=== PATIENT | female | born 1950 | race Hispanic/Latino ===

== ENCOUNTER → 2018-07-09 | Outpatient (CLI) | payer MEDICARE ==
--- NOTE | 2018-07-18 08:47 | Diagnostic Imaging Report ---
#[id number] - MGSCRBIL #BILATERAL DIGITAL SCREENING MAMMOGRAM WITH CAD: 07/09/2018 CLINICAL: Routine screening. Comparison is made to exams dated: 02/23/2017 mammogram, 09/09/2015 mammogram and 01/15/2015 mammogram - [facility]. Current study contains 4 films. The tissue of both breasts is heterogeneously dense. This may lower the sensitivity of mammography. Current study was also evaluated with a Computer Aided Detection (CAD) system. There are benign calcifications in both breasts. There also is a benign mass in the left breast stable back to 2014. There is vascular calcification in the left breast. No significant masses, calcifications, or other findings are seen in either breast. There has been no significant interval change. IMPRESSION: BENIGN There is no mammographic evidence of malignancy. A 1 year screening mammogram is recommended. The patient will be notified by letter of the results. Faisal Mcgovern Jr., D.O. cw/:07/17/2018 07:47:02 Manager Of Drilling: Doris RICO)(M), [facility] letter sent: Compared to Prior B9 Mammogram BI-RADS: 2 Benign
== END ==
LOC: MAMMO 11:23
PROVIDERS: ATTEND Obstetrics & Gynecology Obstetrics
DX: Z12.31 Encounter for screening mammogram for malignant neoplasm of breast (principal)
CPT/HCPCS: 77067

== ENCOUNTER → 2018-11-16 | Outpatient (CLI) | payer MEDICARE ==
--- NOTE | 2018-11-16 15:00 | Diagnostic Imaging Report ---
Exam: Bone mineral density study. History: Osteopenia. Comparison: None Discussion: Evaluation of the left hip, and lumbar spine was performed utilizing DEXA Hologic bone densitometer. The study is technically adequate. Left hip total bone mineral density: 0.983gm/cm2, T-score is 0.2, Z-score is 1.6. Left hip femoral neck bone mineral density: 0.880gm/cm2, T-score is 0.1, Z-score is 1.8. Lumbar spine total bone mineral density:0.923gm/cm2, T-score is-1.1, Z-score is 1.0. Impression: 1. Normal bone mineral density of the left hip, fracture risk is not increased. 2. Osteopenia of the lumbar spine, fracture risk is increased Least significant change (LSC) for bone mineral density as provided by machining associate is 0.023 g/cm2 for lumbar spine and 0.027 g/cm2 for total hip. 10 -year fracture risk per WHO Fracture Risk Assessment Tool (FRAX) for: Major osteoporotic fracture is 3.7% Hip fracture is 0.2% The above fracture probability is calculated for an untreated patient. Fracture probably may be lower if the patient has received treatment. All treatment decisions require clinical judgment and consideration of individual patient factors, including patient preferences, comorbidities, previous drug use and risk factors not captured in the FRAX model (e.g. frailty, falls, vitamin D deficiency, increased bone turnover, interval significant decline in BMD). The patient's fracture risk is compared to an age-matched control. Medical evaluation for secondary causes of low bone bone mineral density may be appropriate. Correlate clinically for the necessity and timing of the next bone mineral density study Signed by: Dr. Jeffrey Hall M.D. on 11/16/2018 2:56 PM
== END ==
LOC: DX 14:15
PROVIDERS: ATTEND Internal Medicine
DX: Z13.820 Encounter for screening for osteoporosis (principal)
CPT/HCPCS: 77080

== ENCOUNTER 2018-11-19 15:41 | Emergency (ER) | payer SELFPAY ==
[~2018-11-19] VITALS: Ht 162.6 cm; Wt 76.7 kg
--- OUTSIDE RECORDS SUMMARY | 2018-11-19 15:44 | XMS REPORT | Summary of Care ---
Author Author [facility] [place] Organization [facility] [place] Address Unknown Phone Unavailable Encounter HQ Encntr_alias(FIN) [id number] Date(s): 09/09/15 - 09/09/15 [facility] [place] [address] [place] [address] [phone] Discharge Disposition: Home Attending Physician: Medardo Delarosa MD Vital Signs No data available for this section Problem List No data available for this section Allergies, Adverse Reactions, Alerts No data available for this section Medications No data available for this section Results No data available for this section Immunizations No data available for this section Procedures No data available for this section Social History No data available for this section Assessment and Plan No data available for this section
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
--- OUTSIDE RECORDS SUMMARY | 2018-11-19 15:44 | XMS REPORT | Summary of Care ---
Author Organization Unknown Address Unknown Phone Unavailable Encounter HQ Encntr_alias([facility]) [id number] Date(s): 07/18/14 - 07/18/14 [facility] Outpatient Imaging - [address] [address] [place] Discharge Disposition: Home Physician Attending: Medardo Delarosa MD Reason for Visit V76.12 - SCREEN MAMMOGRA Problem List No data available for this section Allergies, Adverse Reactions, Alerts No data available for this section Medications No data available for this section Medications Administered During Your Visit No data available for this section Immunizations No data available for this section
--- OUTSIDE RECORDS SUMMARY | 2018-11-19 15:44 | XMS REPORT | Continuity of Care Document ---
Author Author [facility] Interface Address Unknown Phone Unavailable Problems Problem Status Onset Date Classification Date Reported Comments Source R92.8 - OTH ABN AND INCONCLUSIVE FINDI Active 01/24/2017 [facility] R92.2 - INCONCLUSIVE MAMMOGRAM Active 09/02/2015 [facility] 793.80 - ABL MAMMOGRAM N Active 12/30/2014 [facility] [place] Medications Medication Details Route Status Patient Instructions Ordering Provider Order Date Source Allergies, Adverse Reactions, Alerts Substance Category Reaction Severity Reaction type Status Date Reported Comments Source Immunizations Immunization Date Given Site Status Last Updated Comments Source Results Order Name Results Value Reference Range Date Interpretation Comments Source Breast Mammo Diag DEE incl CAD MA Breast Mammo Diag DEE incl CAD MA - BREAST MAMMO DIAG DEE INCL CAD MA BILATERAL DIGITAL DIAGNOSTIC MAMMOGRAM WITH CAD: 02/23/2017 CLINICAL: Other Abnormal And Inconclusive Findings On Diagnostic Imaging Of Breast/R92.8. Current study was evaluated with a Computer Aided Detection (CAD) system. Comparison is made to exams dated: 09/09/2015 mammogram, 01/15/2015 mammogram, 08/20/2014 mammogram and 07/18/2014 mammogram - [facility]. The tissue of both breasts is heterogeneously dense, which could obscure detection of small masses. The area of prior concern in the left breast is stable since 2013. There are benign calcifications in both breasts. No significant masses, calcifications, or other findings are seen in either breast. There has been no significant interval change. IMPRESSION: BENIGN There is no mammographic evidence of malignancy. A 1 year screening mammogram is recommended. Professional services are provided by the [facility]. Danny Lopez M.D., cm/lara:02/23/2017 11:41:46 Signals Collector/Analyst: Nicole DUMONT(Heidi)([place]), [facility] This exam was dictated and interpreted by [id number] for Clifford. letter sent: Normal [place] Mammogram BI-RADS: 2 Benign 02/23/2017 - - Read by: Devendra Sorensen MD Dictated Date/time: 02/23/17 11:41 Electronically Signed by: Devendra Sorensen MD 02/23/17 11:41 FINAL REPORT SHANNON Horton Digital Mammo DX Dee MA Digital Mammo DX Dee MA - DIGITAL MAMMO DX DEE MA BILATERAL DIGITAL DIAGNOSTIC MAMMOGRAM WITH CAD: 09/09/2015 CLINICAL: N63 Unspecified Lump In Breast. Current study was evaluated with a Computer Aided Detection (CAD) system. Comparison is made to exams dated: 01/15/2015 mammogram, 08/20/2014 mammogram and 07/18/2014 mammogram - [facility]. The tissue of both breasts is heterogeneously dense, which could obscure detection of small masses. There is a stable focal asymmetry in the left breast central to the nipple posterior depth. Scattered benign calcifications bilaterally without suspicious masses, calcifications, or other findings are seen in either breast. IMPRESSION: PROBABLY BENIGN The stable focal asymmetry in the left breast most likely is fibroglandular tissue and is probably benign. A follow-up mammogram in 12 months is recommended. Danny Lopez M.D. cm/:09/09/2015 11:00:18 Signals Collector/Analyst: Salina Pinto, [facility] This exam was dictated and interpreted by [id number] for SHANNON Horton. letter sent: Followup Mammogram BI-RADS: 3 Probably benign 09/09/2015 - - Read by: Devendra Sorensen MD Dictated Date/time: 09/09/15 11:00 Electronically Signed by: Devendra Sorensen MD 09/09/15 11:00 FINAL REPORT SHANNON Horton Digital Mammo DX Uni MA Digital Mammo DX Uni MA - DIGITAL MAMMO DX UNI MA/L UNILATERAL LEFT DIGITAL DIAGNOSTIC MAMMOGRAM WITH CAD: 01/15/2015 CLINICAL: 611.72: Follow up for a probably benign focal asymmetry. Current study was evaluated with a Computer Aided Detection (CAD) system. Comparison is made to exams dated: 07/18/2014 mammogram and 08/20/2014 mammogram - [facility]. The tissue of the left breast is heterogeneously dense, which could obscure detection of small masses. There is a stable focal asymmetry in the left breast central to the nipple posterior depth. No other significant masses or calcifications are seen in the breast. IMPRESSION: PROBABLY BENIGN The stable focal asymmetry in the left breast most likely is fibroglandular tissue or a hamartoma and is probably benign. A follow-up bilateral diagnostic mammogram and left breast ultrasound in 6 months are recommended to demonstrate stability. SUMMARY: I notified the patient of the results and their significance at the completion of today's examination. Dr. Rudy Garcia M.D. eoc/:01/15/2015 17:03:03 Signals Collector/Analyst: Salina Pinto, [facility] This exam was dictated and interpreted by [id number] for SHANNON [facility]. letter sent: Followup Mammogram BI-RADS: 3 Probably benign 01/15/2015 - - Read by: Rudy Garcia MD Dictated Date/time: 01/15/15 17:03 Electronically Signed by: Rudy Garcia MD 01/15/15 17:03 FINAL REPORT [facility] [place] Vital Signs Vital Sign Value Date Comments Source Encounters Location Location Details Encounter Type Encounter Number Reason For Visit Attending Provider ADM Date DC Date Status Source [facility] [place] [facility] Services [id number] Medardo Delarosa 05/22/2014 05/23/2014 [facility] [place] [place] [facility] [id number] Medardo Delarosa 07/18/2014 07/19/2014 [facility] [place] [facility] [place] [facility] [id number] Medardo Delarosa 08/20/2014 08/21/2014 [facility] [place] [facility] [place] [facility] [id number] [facility]2015 [facility] [place] [facility] [place] [facility] [id number] Medardo Delarosa 09/09/2015 09/10/2015 [facility] [place] [facility] [place] [facility] [id number] Karolina Ascencio 02/23/2017 02/24/2017 [facility] [place] Procedures Procedure Code Date Perfomer Comments Source
--- OUTSIDE RECORDS SUMMARY | 2018-11-19 15:44 | XMS REPORT | Summary of Care ---
Author Organization Unknown Address Unknown Phone Unavailable Encounter HQ Encntr_alias([facility]) [id number] Date(s): 07/18/14 - 07/18/14 [facility] Outpatient Imaging - [address] [address] Discharge Disposition: Home Physician Attending: [...]
--- OUTSIDE RECORDS SUMMARY | 2018-11-19 15:44 | XMS REPORT | Summary of Care ---
Author Organization Unknown Address Unknown Phone Unavailable Encounter HQ Encntr_alias([facility]) [id number] Date(s): 07/18/14 - 07/18/14 [facility] Outpatient Imaging - [address] [address] [place] Discharge Disposition: Home Physician Attending: [...]
--- OUTSIDE RECORDS SUMMARY | 2018-11-19 15:44 | XMS REPORT | Summary of Care ---
Author Organization Unknown Address Unknown Phone Unavailable Encounter HQ Encntr_alias([facility]) [id number] Date(s): 08/20/14 - 08/20/14 [facility] Outpatient Imaging - [address] [address] [place] Discharge Disposition: Home Physician Attending: Medardo Delarosa MD Reason for Visit 793.80 - ABL MAMMOGRAM N Problem List No data available for this section Allergies, Adverse Reactions, Alerts No data available for this section Medications No data available for this section Medications Administered During Your Visit No data available for this section Immunizations No data available for this section
--- OUTSIDE RECORDS SUMMARY | 2018-11-19 15:44 | XMS REPORT | Summary of Care ---
Author Organization Unknown Address Unknown Phone Unavailable Encounter HQ Encntr_alias(FIN) [id number] Date(s): 01/15/15 - 01/15/15 [facility] Outpatient Imaging - [address] [place] [address] [phone] Discharge Disposition: Home Physician Attending: Medardo Delarosa MD Vital Signs No data [...]
--- OUTSIDE RECORDS SUMMARY | 2018-11-19 15:44 | XMS REPORT ---
[facility] Address Unknown Phone Unavailable Care Team Providers Care Painter Plate Name Role Phone DIYA CROW Unavailable Unavailable Ángel ABERNATHY Unavailable Unavailable Problems This patient has no known problems. Allergies, Adverse Reactions, Alerts This patient has no known allergies or adverse reactions. Medications This patient has no known medications. Results Test Description Test Time Test Comments Text Results Atomic Results Result Comments BONE DXA DUAL ENERGY 2018-11-16 14:55:00 [place] [address] Patient Name: ANA ROSA ABREU MR #: [id number] : 1950 Age/Sex: 68/F Req #: [id number] Adm Physician: Ordered by: DIYA CROW MD Report #: [id number] Location: DX Room/Bed: Procedure: [id number] DX/BONE DXA DUAL ENERGY Exam Date: Exam Time: REPORT STATUS: Signed Exam: Bone mineral density study. History: Osteopenia. Comparison: None Discussion: Evaluation of the left hip, and lumbar spine was performed utilizing DEXA Hologic bone densitometer. The study is technically adequate. Left hip total bone mineral density: 0.983gm/cm2, T- score is 0.2, Z-score is 1.6. Left hip femoral neck bone mineral density: 0.880gm/cm2, T-score is 0.1, Z-score is 1.8. Lumbar spine total bone mineral density:0.923gm/cm2, T-score is-1.1, Z-score is 1.0. Impression: 1. Normal bone mineral density of the left hip, fracture risk is not increased. 2. Osteopenia of the lumbar spine, fracture risk is increased Least significant change (LSC) for bone mineral density as provided by aged or disabled carer is 0.023 g/cm2 for lumbar spine and 0.027 g/cm2 for total hip. 10 -year fracture risk per WHO Fracture Risk Assessment Tool (FRAX) for: Major osteoporotic fracture is 3.7% Hip fracture is 0.2% The above fracture probability is calculated for an untreated patient. Fracture probably may be lower if the patient has received treatment. All treatment decisions require clinical judgment and consideration of individual patient factors, including patient preferences, comorbidities, previous drug use and risk factors not captured in the FRAX model (e.g. frailty, falls, vitamin D deficiency, increased bone turnover, interval significant decline in BMD). The patient's fracture risk is compared to an age-matched control. Medical evaluation for secondary causes of low bone bone mineral density may be appropriate. Correlate clinically for the necessity and timing of the next bone mineral density study Signed by: Dr. Jeffrey Hall M.D. on 11/16/2018 2:56 PM Dictated By: JEFFREY HALL MD, MD 1458 Transcribed By: KAREN on 11/16/18 1451 COPY TO: DIYA RCOW MD MAMMOGRAPHY DIGITAL SCR BILAT 2018-07-09 13:04:00 [place] [address] Patient Name: ANA ROSA ABREU MR #: [id number] : 1950 Age/Sex: 67/F Req #: [id number] Adm Physician: Ordered by: VANDA ABERNATHY MD Report #: [id number] Location: [facility] Room/Bed: Procedure: [id number] MG/MAMMOGRAPHY DIGITAL SCR BILAT Exam Date: 07/09/18 Exam Time: 1133 REPORT STATUS: Signed #[id number] - MGSCRBIL #BILATERAL DIGITAL SCREENING MAMMOGRAM WITH CAD: 07/09/2018 CLINICAL: Routine screening. Comparison is made to exams dated: 02/23/2017 mammogram, 09/09/2015 mammogram and 01/15/2015 mammogram - [facility]. Current study contains 4 films. The tissue of both breasts is heterogeneously dense. This may lower the sensitivity of mammography. Current study was also evaluated with a Computer Aided Detection (CAD) system. There are benign calcifications in both breasts. There also is a benign mass in the left breast stable back to 2014. There is vascular calcification in the left breast. No significant masses, calcifications, or other findings are seen in either breast. There has been no significant interval change. IMPRESSION: BENIGN There is no mammographic evidence of malignancy. A 1 year screening mammogram is recommended. The patient will be notified by letter of the results. Nic Mcgovern Jr., D.O. cw/:07/17/2018 07:47:02 Calibration Checker: Doris RICO)(M), [facility] letter sent: Compared to Prior B9 Mammogram BI-RADS: 2 Benign Dictated By: NIC MCGOVERN DO 6 Transcribed By: ELTON on 07/17/18746 COPY TO: VANDA ABERNATHY MD
--- OUTSIDE RECORDS SUMMARY | 2018-11-19 15:44 | XMS REPORT | Summary of Care ---
Author Author [facility]patient [facility] - [place] Organization [facility] [place] Address Unknown Phone Unavailable Encounter HQ Encntr_alibrent(FIN) [id number] Date(s): 02/23/17 - 02/23/17 [facility] Outpatient Imaging - [place] [address] [place] [phone] Discharge Disposition: Home or Self Care Attending Physician: Karolina Ascencio MD Vital Signs No data available for [...]
[2018-11-19] MEDS ORDERED: KETOROLAC TROMETHAMINE 60 MG/2 ML VIAL IM ONE (16:30)
[2018-11-19] MEDS ORDERED: ORPHENADRINE CITRATE 30 MG/ML VIAL IM ONE (16:30)
[2018-11-19] MEDS ORDERED: DEXAMETHASONE SOD PHOS 10 MG/1 ML VIAL IV ONE (16:30)
[2018-11-19] MEDS ORDERED: DEXAMETHASONE SOD PHOS 10 MG/1 ML VIAL IM ONE (16:45)
[2018-11-19] MEDS ORDERED: IBUPROFEN 400 MG TAB PO ONE (17:15)
[2018-11-19] MEDS ORDERED: PREDNISONE 20 MG TAB PO ONE (17:15)
[2018-11-19] MEDS ORDERED: CYCLOBENZAPRINE HCL 10 MG TAB PO ONE (17:15)
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
[2018-11-20 06:15] VITALS: BP 155/78
== END 2018-11-20 00:25 | disposition home or self-care (01) ==
LOC: ER 15:41
DX: S00.83XA Contusion of other part of head, initial encounter (principal); S16.1XXA Strain of muscle, fascia and tendon at neck level, initial encounter; M25.511 Pain in right shoulder; V43.62XA Car passenger injured in collision with other type car in traffic accident, initial encounter; Y92.488 Other paved roadways as the place of occurrence of the external cause; I10 Essential (primary) hypertension
CPT/HCPCS: 70450; 72125; 73030; 99284; J7512; J1100; J1885; J2360

== ENCOUNTER 2022-04-18 12:52 | Outpatient (RCR) | payer OTHER | END 2022-04-27 | LOC: PT 12:52 | PROVIDERS: ATTEND Specialist | DX: M16.0 Bilateral primary osteoarthritis of hip (principal); M48.062 Spinal stenosis, lumbar region with neurogenic claudication ==